=== PATIENT | male | born 1955 | race Two or more races ===

== ENCOUNTER 2020-09-28 18:58 | Inpatient (IN) | payer SELFPAY ==
[~2020-09-28] VITALS: Ht 167.6 cm; Wt 56.2 kg
[2020-09-28] MEDS ORDERED: ACETAMINOPHEN 325MG TABLET PO ONE (21:30)
[2020-09-28] MEDS ORDERED: SODIUM CHLORIDE 0.9% 1,000 ML IV ONE (22:30)
[2020-09-29 00:21] LABS: HEMATOCRIT. 32.1 % (42.0-52.0); MEAN CORPUSCULAR HEMOGLOBIN 34.2 pg (28.0-32.0); MEAN CORPUSCULAR VOLUME 99.8 fL (80.0-94.0); MEAN PLATELET VOLUME 9.4 fl (7.4-10.4); PLATELET 60 x1000/uL (130-400); RED BLOOD CELL COUNT 3.21 mill/uL (4.7-6.1); RED CELL DISTRIBUTION WIDTH 14.5 % (11.6-14.6)
[2020-09-29 00:29] LABS: CHLORIDE 97 mEq/L (98-107)
[2020-09-29 00:45] LABS: BETA HYDROXYBUTYRATE 0.1 mMol/L (0.0-0.3)
[2020-09-29 00:49] LABS: CLARITY URINE CLEAR (CLEAR); COLOR URINE YELLOW (YELLOW); KETONES URINE NEGATIVE (NEGATIVE); LEUKOCYTE ESTERASE URINE NEGATIVE (NEGATIVE); NITRITE URINE NEGATIVE (NEGATIVE); OCCULT BLOOD URINE 1+ (NEGATIVE); PROTEIN URINE TRACE (NEGATIVE); UROBILINOGEN URINE 0.2 E.U./dL (0.2-1.0)
[2020-09-29] MEDS ORDERED: FENTANYL CITRATE/PF 50MCG/ML 2ML VIAL IV ONE (01:15)
[2020-09-29 07:13] LABS: PLATELET ESTIMATE DECREASED
[2020-09-29 09:00] VITALS: BP 143/79
[2020-09-29] MEDS ORDERED: ONDANSETRON HCL 4MG/2ML INJ IV PRN (09:00)
[2020-09-29] MEDS ORDERED: DIPHENHYDRAMINE 50MG/ML VIAL IV PRN (09:00)
[2020-09-29] MEDS ORDERED: HYDRALAZINE 20MG/ML VIAL IV PRN (09:00)
[2020-09-29] MEDS ORDERED: LORAZEPAM 2MG/ML CPJ IV PRN (09:00)
[2020-09-29] MEDS ORDERED: CLONIDINE 0.1MG TABLET PO PRN (09:00)
[2020-09-29] MEDS ORDERED: GUAIFENESIN 200MG/10ML SUGAR FREE UDC PO PRN (09:00)
[2020-09-29] MEDS ORDERED: ACETAMINOPHEN 325MG TABLET PO PRN ×2 (09:00→22:15)
[2020-09-29] MEDS ORDERED: DOCUSATE SODIUM 100MG CAPSULE PO PRN (09:00)
[2020-09-29] MEDS ORDERED: ENOXAPARIN 40MG/0.4ML SYR SUBCUT SCH (09:00)
[2020-09-29] MEDS ORDERED: MAGNESIUM/ALUMINUM HYDROXIDE/SIMETHICONE 30ML UDC PO PRN (09:00)
[2020-09-29] MEDS ORDERED: IPRATROPIUM/ALBUTEROL 0.5-3(2.5)MG/3ML NEB HHN PRN (09:00)
[2020-09-29] MEDS ORDERED: DEXTROSE 50% WATER 50ML SYRINGE IV PRN (09:15)
[2020-09-29] MEDS ORDERED: DEXT 5%/0.45% NACL 1000ML 1,000 ML IV SCH (10:00)
[2020-09-29] MEDS ORDERED: ASPI-1406 PO (10:39)
[2020-09-29] MEDS ORDERED: METF-414 PO (10:39)
[2020-09-29 10:43] VITALS: BP 143/79
[2020-09-29] MEDS ORDERED: SODIUM CHLORIDE 0.45% 1,000 ML IV SCH (11:00)
[2020-09-29] MEDS: MAGNESIUM OXIDE 400MG TABLET PO SCH ×2 (11:28→13:06)
[2020-09-29 12:00] VITALS: BP 153/87
[2020-09-29] MEDS: INSULIN LISPRO 100 UNITS/ML SUBCUT SCH ×3 (12:15→20:30)
[2020-09-29] MEDS: BLOOD SUGAR DIAGNOSTIC STRIP TEST SCH ×3 (12:18→20:31)
[2020-09-29] MEDS: HYDROCODONE/ACETAMINOPHEN 5/325MG TABLET PO PRN ×2 (12:59→20:31)
[2020-09-29] MEDS ORDERED: FOLIC ACID 1 MG, THIAMINE HCL 100 MG, MVI, ADULT NO.1 10 ML in DEXTROSE 5% WATER 1,000 ML IV NR (14:00)
[2020-09-29] MEDS: CHLORDIAZEPOXIDE 25MG CAPSULE PO SCH ×2 (14:48→21:11)
[2020-09-29] MEDS: SODIUM CHLORIDE 0.9% INJ 3ML FLUSH IVF SCH ×2 (14:49→20:31)
[2020-09-29 16:00] VITALS: BP 119/85
[2020-09-29 16:46] LABS: HEPATITIS B SURFACE ANTIGEN NEGATIVE
[2020-09-29] MEDS: MORPHINE SULFATE 2 MG/ML CPJ (NOT FOR IM USE) IV PRN ×2 (16:49→23:27)
[2020-09-29 17:16] LABS: HEPATITIS A AB IGM NEGATIVE (NEGATIVE)
[2020-09-29 20:00] VITALS: BP 123/75
[2020-09-29] MEDS: LEVOFLOXACIN 500MG PREMIX 100 ML IV SCH (23:03)
[2020-09-29 23:54] LABS: CREATINE KINASE MB FRACTION 1.8 ng/mL (0.5-3.6)
[2020-09-29] MEDS: DEXT 5%/0.45% NACL 1000ML 1,000 ML IV SCH (23:58)
[2020-09-30] VITALS: BP 120/71
[2020-09-30 04:00] VITALS: BP 131/77
[2020-09-30] MEDS: MORPHINE SULFATE 2 MG/ML CPJ (NOT FOR IM USE) IV PRN (05:23)
[2020-09-30] MEDS: CHLORDIAZEPOXIDE 25MG CAPSULE PO SCH ×3 (05:54→21:15)
[2020-09-30] MEDS: BLOOD SUGAR DIAGNOSTIC STRIP TEST SCH ×4 (05:54→21:12)
[2020-09-30] MEDS: SODIUM CHLORIDE 0.9% INJ 3ML FLUSH IVF SCH ×3 (05:54→21:17)
[2020-09-30 07:12] LABS: HEMATOCRIT. 28.3 % (42.0-52.0); MEAN CORPUSCULAR HEMOGLOBIN 34.6 pg (28.0-32.0); MEAN CORPUSCULAR VOLUME 98.1 fL (80.0-94.0); MEAN PLATELET VOLUME 9.5 fl (7.4-10.4); PLATELET 53 x1000/uL (130-400); RED BLOOD CELL COUNT 2.89 mill/uL (4.7-6.1); RED CELL DISTRIBUTION WIDTH 14.6 % (11.6-14.6)
[2020-09-30] MEDS: INSULIN LISPRO 100 UNITS/ML SUBCUT SCH ×4 (07:12→21:16)
[2020-09-30 07:23] LABS: CHLORIDE 95 mEq/L (98-107)
[2020-09-30] MEDS ORDERED: MIDAZOLAM HCL 2 MG/2 ML VIAL ONE (07:55)
[2020-09-30] MEDS ORDERED: PROPOFOL 200MG/20ML VIAL IV ONE (07:55)
[2020-09-30] MEDS ORDERED: FENTANYL CITRATE/PF 50MCG/ML 2ML VIAL ONE (07:55)
[2020-09-30] MEDS: THIAMINE HCL 100MG TABLET PO SCH (08:00)
[2020-09-30] MEDS: FOLIC ACID 1MG TABLET PO SCH (08:00)
[2020-09-30] MEDS: MULTIVITAMINS,THER W-MINERALS TABLET PO SCH (08:00)
[2020-09-30 09:32] VITALS: BP 122/75
[2020-09-30 12:00] VITALS: BP 138/86
[2020-09-30 12:34] LABS: PLATELET ESTIMATE DECREASED
[2020-09-30] MEDS: HYDROCODONE/ACETAMINOPHEN 5/325MG TABLET PO PRN ×2 (14:08→22:49)
[2020-09-30 16:00] VITALS: BP 110/69
[2020-09-30 20:00] VITALS: BP 108/68
[2020-10-01] VITALS: BP 106/61
[2020-10-01] MEDS: LEVOFLOXACIN 500MG PREMIX 100 ML IV SCH (00:06)
[2020-10-01] MEDS: DEXT 5%/0.45% NACL 1000ML 1,000 ML IV SCH (00:19)
[2020-10-01 04:00] VITALS: BP 125/77
[2020-10-01] MEDS: BLOOD SUGAR DIAGNOSTIC STRIP TEST SCH ×4 (05:58→21:40)
[2020-10-01] MEDS: SODIUM CHLORIDE 0.9% INJ 3ML FLUSH IVF SCH ×3 (06:00→22:03)
[2020-10-01] MEDS: CHLORDIAZEPOXIDE 25MG CAPSULE PO SCH ×3 (06:18→22:03)
[2020-10-01] MEDS: INSULIN LISPRO 100 UNITS/ML SUBCUT SCH ×4 (06:20→22:03)
[2020-10-01 08:00] VITALS: BP 120/73
[2020-10-01 08:43] LABS: HEMATOCRIT. 28.4 % (42.0-52.0); HEMOGLOBIN. 9.9 g/dL (14.0-18.0); MEAN CORPUSCULAR HEMOGLOBIN 34.5 pg (28.0-32.0); MEAN CORPUSCULAR VOLUME 99.6 fL (80.0-94.0); MEAN PLATELET VOLUME 9.8 fl (7.4-10.4); PLATELET 60 x1000/uL (130-400); RED BLOOD CELL COUNT 2.85 mill/uL (4.7-6.1); RED CELL DISTRIBUTION WIDTH 14.7 % (11.6-14.6)
[2020-10-01 08:50] LABS: CHLORIDE 102 mEq/L (98-107)
[2020-10-01] MEDS: FOLIC ACID 1MG TABLET PO SCH (09:22)
[2020-10-01] MEDS: MAGNESIUM OXIDE 400MG TABLET PO SCH (09:22)
[2020-10-01] MEDS: MULTIVITAMINS,THER W-MINERALS TABLET PO SCH (09:22)
[2020-10-01] MEDS: THIAMINE HCL 100MG TABLET PO SCH (09:22)
[2020-10-01 12:00] VITALS: BP 116/70
[2020-10-01] MEDS ORDERED: POTASSIUM CHLORIDE 20MEQ TABLET SR PO NR (13:45)
[2020-10-01 14:04] LABS: PLATELET ESTIMATE DECREASED
[2020-10-01 16:00] VITALS: BP 130/78
[2020-10-01] MEDS: LEVOFLOXACIN 500MG TABLET PO SCH (16:47)
[2020-10-01 20:00] VITALS: BP 120/75
[2020-10-01] MEDS ORDERED: ACYCLOVIR 200MG CAPSULE PO SCH (22:00)
[2020-10-01] MEDS: METOPROLOL TARTRATE 25MG TABLET PO SCH (22:07)
[2020-10-02] VITALS: BP 140/83
[2020-10-02 04:00] VITALS: BP 117/84
[2020-10-02] MEDS: DEXT 5%/0.45% NACL 1000ML 1,000 ML IV SCH (04:41)
[2020-10-02] MEDS: BLOOD SUGAR DIAGNOSTIC STRIP TEST SCH ×2 (05:55→11:45)
[2020-10-02] MEDS: SODIUM CHLORIDE 0.9% INJ 3ML FLUSH IVF SCH (05:55)
[2020-10-02] MEDS: CHLORDIAZEPOXIDE 25MG CAPSULE PO SCH (06:21)
[2020-10-02] MEDS: INSULIN LISPRO 100 UNITS/ML SUBCUT SCH ×2 (06:22→13:13)
[2020-10-02 07:43] LABS: BASOPHILS % 2.6 % (0.0-2.0); EOSINOPHILS % 2.6 % (0.0-5.0); HEMATOCRIT. 27.9 % (42.0-52.0); HEMOGLOBIN. 9.6 g/dL (14.0-18.0); LYMPHOCYTES % 31.5 % (20.0-50.0); MEAN CORPUSCULAR VOLUME 101.9 fL (80.0-94.0); MEAN PLATELET VOLUME 9.4 fl (7.4-10.4); NEUTROPHILS % 54.3 % (40.0-76.0); PLATELET 66 x1000/uL (130-400); RED BLOOD CELL COUNT 2.74 mill/uL (4.7-6.1); RED CELL DISTRIBUTION WIDTH 15.4 % (11.6-14.6)
[2020-10-02 08:00] VITALS: BP 107/49
[2020-10-02 08:20] LABS: CHLORIDE 102 mEq/L (98-107)
[2020-10-02] MEDS: THIAMINE HCL 100MG TABLET PO SCH (09:35)
[2020-10-02] MEDS: FOLIC ACID 1MG TABLET PO SCH (09:35)
[2020-10-02] MEDS: MULTIVITAMINS,THER W-MINERALS TABLET PO SCH (09:36)
[2020-10-02] MEDS: METOPROLOL TARTRATE 25MG TABLET PO SCH (09:52)
[2020-10-02] MEDS: MAGNESIUM OXIDE 400MG TABLET PO SCH (09:52)
[2020-10-02] MEDS ORDERED: POTASSIUM CHLORIDE 20MEQ TABLET SR PO NR (10:15)
[2020-10-02] MEDS ORDERED: ASPIRIN 81MG EC TABLET PO SCH (10:15)
[2020-10-02] MEDS: LEVOFLOXACIN 500MG TABLET PO SCH (11:11)
[2020-10-02 11:28] VITALS: BP 126/83
== END 2020-10-02 15:45 | disposition home or self-care (01) | DRG 342 ==
LOC: ER 18:58 → 5WST 09-29 02:29 → ENRESERV 09-29 07:22
PROVIDERS: ADMIT Internal Medicine; ATTEND Internal Medicine
PROC: 0RSKXZZ Reposition Left Shoulder Joint, External Approach (ICD-10-PCS; 2020-09-29)
PROC: 0RSKXZZ Reposition Left Shoulder Joint, External Approach (ICD-10-PCS; principal; 2020-09-30)
DX: S43.015A Anterior dislocation of left humerus, initial encounter (principal); E46 Unspecified protein-calorie malnutrition; F10.231 Alcohol dependence with withdrawal delirium; E87.2 Acidosis; I13.11 Hypertensive heart and chronic kidney disease without heart failure, with stage 5 chronic kidney disease, or end stage renal disease; K75.9 Inflammatory liver disease, unspecified; D64.9 Anemia, unspecified; E11.22 Type 2 diabetes mellitus with diabetic chronic kidney disease; E11.65 Type 2 diabetes mellitus with hyperglycemia; Z20.822 Contact with and (suspected) exposure to COVID-19; D72.819 Decreased white blood cell count, unspecified; E83.42 Hypomagnesemia; E87.1 Hypo-osmolality and hyponatremia; F10.229 Alcohol dependence with intoxication, unspecified; W18.39XA Other fall on same level, initial encounter; Z79.84 Long term (current) use of oral hypoglycemic drugs; Z91.14 Patient's other noncompliance with medication regimen; Z59.0 Homelessness; Z79.82 Long term (current) use of aspirin; Z91.19 Patient's noncompliance with other medical treatment and regimen; Y93.89 Activity, other specified; Y92.89 Other specified places as the place of occurrence of the external cause; Y99.8 Other external cause status; Z68.20 Body mass index [BMI] 20.0-20.9, adult; Z79.899 Other long term (current) drug therapy
CPT/HCPCS: 36415; 71045; 73020; 73030; 73090; 80048; 80053; 80320; 81003; 82010; 82550; 82553; 82962; 83036; 83605; 83735; 84443; 84484; 85025; 86705; 86709; 86803; 87340; 87426; 93005; 93306; 97162; 99285; A6261; J1815; J1956; J2060; J2250; J2270; J2704; J3010; J3411; J3490; J7030; J7070; L3670; G0480